=== PATIENT | female | born 1980 | race Caucasian/White ===

== ENCOUNTER 2021-11-26 13:01 | Outpatient (CLI) | payer OTHER, SELFPAY | END 2021-11-26 13:02 | disposition home or self-care (01) | LOC: US 13:02 | PROVIDERS: PCP Family Medicine; Visit Provider Obstetrics & Gynecology | DX: Z30.430 Encounter for insertion of intrauterine contraceptive device (principal) | CPT/HCPCS: 58300; 76856; J7298 ==

== ENCOUNTER 2022-04-26 14:30 | Outpatient (CLI) | payer OTHER, SELFPAY ==
[2022-04-26 10:28] LABS: Albumin* 4.3 g/dL (3.3-5.0); Chloride* 108 mmol/L (96-114)
[2022-04-26 10:29] LABS: Potassium* 4.2 mmol/L (3.6-5.1); Sodium* 141 mmol/L (135-149)
[2022-04-26 10:31] LABS: Alkaline Phosphatase* 62 U/L (40-150); Aspartate Amino Transferase* 31 U/L (12-35); Bilirubin Total* 0.9 mg/dL (0.1-1.5); Blood Urea Nitrogen* 11 mg/dL (5-24); Carbon Dioxide* 25 mmol/L (20-32); Creatinine* 0.9 mg/dL (0.5-1.5); Estimated Glomerular Filt Rate 83 ml/min; Glucose* 88 mg/dL (60-115); Total Protein* 7.1 g/dL (6.0-8.3)
[2022-04-26 10:32] LABS: Alanine Aminotransferase* 28 U/L (4-35); Calcium* 9.2 mg/dL (8.4-10.6); HDL Cholesterol* 42 mg/dL (>=50); Triglycerides* 124 mg/dL (40-149)
[2022-04-27 18:56] LABS: Cholesterol* 176 mg/dL (90-199); LDL Cholesterol Calculated 109 mg/dL (<100)
== END 2022-04-26 14:31 | disposition home or self-care (01) ==
PROVIDERS: PCP Family Medicine; Visit Provider Family Medicine
DX: Z01.419 Encounter for gynecological examination (general) (routine) without abnormal findings (principal); E66.9 Obesity, unspecified; E78.5 Hyperlipidemia, unspecified
CPT/HCPCS: 80053; 80061

== ENCOUNTER 2023-05-08 09:25 | Outpatient (CLI) | payer OTHER, SELFPAY ==
--- OUTSIDE RECORDS SUMMARY | 2023-05-12 07:34 | XMS_ITS | Clinical Summary ---
Author Name Unknown Organization [employer] [facility] Address [place], [place] [address] Care Team Providers Care Inspector Open Die Name Role Phone None Primary Care Provider Unavailabl e Allergies Active Allergy Reactions Criticality Noted Date Comments Penicillins 09/27/2007 Medications Medication Sig Dispensed Refills Start Date End Date Status rivaroxaban (Xarelto) 10 mg tablet Take 1 Tablet (10 mg) by mouth one time if needed. 0 12/05/2021 Active multivitamin (MVI) tablet Take 1 Tablet by mouth once daily. 0 12/05/2021 Active Active Problems No known active problems Social History Tobacco Use Types Packs/Day Years Used Date Smoking Tobacco: Never Smokeless Tobacco: Never Alcohol Use Standard Drinks/Week Comments Yes 0 (1 standard drink = 0.6 oz pur e alcohol) twice per month Sex and Gender Information Value Date Recorded Sex Assigned at Not on file Gender Identity Not on file Sexual Orientation Not on file Obstetrics History Last Filed Vital Signs Vital Sign Reading Time Taken Comments Blood Pressure 175/102 12/05/2021 9:17 AM CDT Pulse 125 12/05/2021 9:17 AM CDT Temperature 37.3 ??C (99.1 ??F) 12/05/2021 9:17 AM CD T Respiratory Rate 16 12/05/2021 9:17 AM CDT Oxygen Saturation 97% 12/05/2021 9:17 AM CDT Inhaled Oxygen Concentration - - Weight 108.9 kg (240 lb) 07/21/2008 7:56 AM CDT Height 170.2 cm (5' 7) 07/21/2008 7:56 AM CDT Body Mass Index 37.59 07/21/2008 7:56 AM CDT Plan of Treatment Health Maintenance Due Date Last Done Comments Tdap 1993 Depression screening for age 12+ 1994 HIV for age 15-65 1997 BMI (ht and wt on same day) for age 18+ 2000 Hepatitis C screening for ag e 18-79 2000 Tetanus booster 2002 COVID-19 vaccine series (2022- season) 2022 03/20/2021, 08/06/2020, 2020 Influenza for age 9-49 12/23/2022 Pap test for age 21-65 11/21/2023 , 11/20/2020 Pneumococcal series for age 6-64 Aged Out No longer eligible b ased on patient's age to complete this topic Care Teams Inspector Open Die Relationship Specialty Start Date End Date None . PCP - General 09/27/07
--- OUTSIDE RECORDS SUMMARY | 2023-05-12 07:34 | XMS_ITS | Encounter Summary ---
Author Name Unknown Organization [facility] Address [address] [place] [address] Care Team Providers Care Division Field Inspector Name Role Phone Elsewhere, Pcp Primary Care Provider Unavailabl e Reason for Visit * Reason Comments Sore Throat Hard to swallow; pt not eating much due to throat swelling. Sx's since Monday Nausea Since AM; wretc krishna no vomiting Earache Aches with swallowin g Encounter Details Date Type Department Care Team (Late st Contact Info) Description 06/08/2022 6:30 PM ROBOTIC WELDING OPERATOR Office Visit Urgent Care, [facility], in [place], [place] [address] [place] [phone] Dg Rock APRN, C.N.P., D.N.P. Pharyngitis Acute (Primary Dx); Tonsillitis Acute Discharge Disposition: Home or Self Care Social History Tobacco Use Types Packs/Day Years Used Date Smoking Tobacco: Never Passive Smoke Exposure: Never Smokeless Tobacco: Never Tobacco Cessation:Counseling Given: Not Answered Nutrition Answer Date Recorded Nutrition: EVOO Fat Source Unknown 06/01 Nutrition: Servings of Fruits/Vegetables per Day Not on file 06/01/2021 Dental Answer Date Recorded Dental: Regular Dentist Unknown 06/01/19 Sex and Gender Information Value Date Recorded Sex Assigned at Not on file Gender Identity Not on file Sexual Orientation Not on file documented as of this encounter Last Filed Vital Signs Vital Sign Reading Time Taken Comments Blood Pressure 136/96 06/08/2022 6:45 PM ROBOTIC WELDING OPERATOR Pulse 117 06/08/2022 6:42 PM ROBOTIC WELDING OPERATOR Temperature 36.9 ??C (98.4 ??F) 06/08/2022 6:42 PM CS T Respiratory Rate 18 06/08/2022 6:42 PM ROBOTIC WELDING OPERATOR Oxygen Saturation 97% 06/08/2022 6:42 PM ROBOTIC WELDING OPERATOR Inhaled Oxygen Concentration - - Weight 122 kg (268 lb 15.4 oz) 06/08/2022 6:42 P M ROBOTIC WELDING OPERATOR Height 171 cm (5' 7.32) 06/08/2022 6:42 PM ROBOTIC WELDING OPERATOR Body Mass Index 41.72 06/08/2022 6:42 PM ROBOTIC WELDING OPERATOR documented in this encounter Patient Instructions * Attachments The following attachments cannot be sent through Care Everywhere. * Sore Throat Care (Puerto Rican) documented in this encounter Progress Notes * Dg Rock, TISHA, C.N.P., D.N.P. - 06/08/2022 6:30 PM CST SUBJECTIVE CHIEF COMPLAINT / REASON FOR VISIT Sore Throat (Hard to swallow; pt not eating much due to throat swelling. Sx's since Monday), Nausea(Since ; wretching no vomiting), and Earache (Aches with swallowing) HISTORY OF PRESENT ILLNESS Analisa Coyne is a 41 y.o. female who presents for evaluation of her sore throat. Patient reports that she initially started with sore throat on Monday night. Monday she had some nausea. She hasnot had any fevers. She reports that her throat presently feels the best tests since morning. Earlier during the day she had trouble swallowing and was spitting her saliva due to pain. She does not have any hoarseness of voice. She has not had any fevers. Home treatments include Advil 400 mg, gargling with saltwater. She also reports having some ear pain when she swallows. REVIEW OF SYSTEMS A brief review of systems was negative except for that mentioned in the history of present of illness. The patient's social history, medical history, and home medications were reviewed in the electronicmedical record. ALLERGIES/CONTRAINDICATIONS Allergies Allergen Reactions Penicillins Hives OBJECTIVE VITAL SIGNS BP (!) 136/96 Pulse (!) 117 Temp 36.9 ??C (Temporal) Resp 18 Ht 171 cm Wt 122 kg SpO2 97% BMI 41.72 kg/m?? PHYSICAL EXAMINATION General: This patient is alert and in no acute distress. HEENT: Head is atraumatic and normocephalic. Sclera and conjunctivae appear clear without any injection or exudates. PERRLA. EOMs are intact bilateral. Auditory canals are normal without erythema or edema. TMs are pearly mitchell and intact without erythema. Oral cavity is adequately hydrated. Posterior pharynx is erythematous. Uvula is midline. Tonsils are enlarged. Neck: Supple with bilateral tonsillar lymphadenopathy. Respiratory: Effort is easy. Lung sounds are clear to auscultation. Cardiovascular: S1, S2 are present. Normal rate and rhythm. Musculoskeletal: Grossly intact. No deformities are noted. Skin: Normal color, temperature and moisture. No rashes or lesions are noted. DIAGNOSTICS Recent Results (from the past 24 hour(s)) Strep Group A, PCR, Point of Care Collection Time: 06/08/22 7:06 PM Result Value Strep Group A, PCR, POCT Collected ASSESSMENT / PLAN #1 Pharyngitis Acute #2 Tonsillitis Acute Other orders - Strep Group A, PCR, Point of Care - predniSONE (DELTASONE) 10 mg tablet; Take 3 tablets (30 mg total) by mouth daily for 3 days., Starting 06/08/2022, Until 06/11/2022, Normal A strep PCR test is pending. Will call to update on test results and treat if positive. Push fluids. Take prednisone 30 mg daily for the next 3 days starting tomorrow morning with food. Get plenty ofrest. OTC and home care measures such as saltwater gargles, lozenges, cough drops, honey were discussed. Tylenol or Ibuprofen as needed for pain or fever, dosages discussed. See primary care providerto follow-up in 4-5 days if not improving, sooner to ED or urgent care for any worsening or concerning symptoms. Patient verbalized understanding and agree with this plan. No further needs at this time. Electronically signed by: Dg Rock APRN, C.N.P., D.N.P. 06/08/22 7:53 PM ROBOTIC WELDING OPERATOR TIC WELDING OPERATOR documented in this encounter Plan of Treatment Not on file documented as of this encounter Procedures Procedure Name Priority Date/Time Associated Diagnosis Comments STREP GROUP A, PCR, POCT Routine 06/08/2022 8:09 PM ROBOTIC WELDING OPERATOR STREP GROUP A, PCR, POCT Routine 06/08/2022 7:06 PM ROBOTIC WELDING OPERATOR Pharyngitis Acute Tonsillitis Acute documented in this encounter Results * (ABNORMAL) Strep Group A, PCR, Point of Care (06/08/2022 8:09 PM ROBOTIC WELDING OPERATOR) Strep Group A, PCR, POCT Positive(A ) Negative 06/08/2022 8:09 PM ROBOTIC WELDING OPERATOR NPRG 06/08/2022 8:09 PM ROBOTIC WELDING OPERATOR 06/08/2022 8:24 PM ROBOTIC WELDING OPERATOR Generic [facility] POCT ORDERABLES - DEVICE Performing Organization Address City/[facility]/ZIP Co de Phone Number [facility] [address] [place] [address], [place] NPRG [address] [address] * Strep Group A, PCR, Point of Care (06/08/2022 7:06 PM ROBOTIC WELDING OPERATOR) Strep Group A, PCR, POCT Collected DEFAULT 06/08/2022 7:09 PM ROBOTIC WELDING OPERATOR NPRG Swab (Throat) 06/08/2022 7:0 6 PM ROBOTIC WELDING OPERATOR 06/08/2022 7:09 PM ROBOTIC WELDING OPERATOR Dg Rock APRN C.N.P., D.N.P. LAB P OCT ORDERABLES - DEVICE Performing Organization Address City/[facility]/ZIP Co de Phone Number [facility] [address] [place] [address], [facility] [address] [address] documented in this encounter Visit Diagnoses Diagnosis Pharyngitis Acute- Primary Tonsillitis Acute documented in this encounter Care Teams Division Field Inspector Relationship Specialty Start Date End Date Elsewhere, Pcp PCP - General Internal Medicine 06/08/22 documented as of this encounter
--- OUTSIDE RECORDS SUMMARY | 2023-05-12 07:34 | XMS_ITS | Encounter Summary ---
Author Name Unknown Organization [facility] Address [address] [place] [address] Care Team Providers Care Vocational Rehabilitation Counselor Name Role Phone Elsewhere, Pcp Primary Care Provider Unavailabl e Encounter Details Date Type Department Care Team (Late st Contact Info) Description 06/09/2022 Clinical Communication Urgent Care, [facility], in [place], [place] [address] [place] [phone] Dg Rock, TISHA, C.N.P., D.N.P. Social History Tobacco Use Types Packs/Day Years Used Date Smoking Tobacco: Never Passive Smoke Exposure: Never Smokeless Tobacco: Never Nutrition Answer Date Recorded Nutrition: EVOO Fat Source Unknown 06/01 Nutrition: Servings of Fruits/Vegetables per Day Not on file 06/01/2021 Dental Answer Date Recorded Dental: Regular Dentist Unknown 06/01/19 Sex and Gender Information Value Date Recorded Sex Assigned at Not on file Gender Identity Not on file Sexual Orientation Not on file documented as of this encounter Plan of Treatment Not on file documented as of this encounter Visit Diagnoses Diagnosis Pharyngitis Streptococcal- Primary documented in this encounter Care Teams Vocational Rehabilitation Counselor Relationship Specialty Start Date End Date Elsewhere, Pcp PCP - General Internal Medicine 06/08/22 documented as of this encounter
--- OUTSIDE RECORDS SUMMARY | 2023-05-12 07:34 | XMS_ITS ---
Author Name Unknown Organization [facility] Address [address] [place] [address] Care Team Providers Care Tele Marketing Executive Name Role Phone Unavailable Unavailable Unavailable Surgery Details Not on file Complications Check Surgery Details section. Procedure Estimated Blood Loss Check Surgery Details section. Procedure Findings Check Surgery Details section. Procedure Specimens Taken Check Surgery Details section.
--- OUTSIDE RECORDS SUMMARY | 2023-05-12 07:34 | XMS_ITS | Referral Summary ---
Author Name Unknown Organization [facility] Address [address] [place] [address] Care Team Providers Care Financial Sales Consultant Name Role Phone Elsewhere, Pcp Primary Care Provider Unavailabl e Source Comments Patient records contain information from all sites at [facility]. For routine questions regarding patient records, call [phone] during business hours, M-F 8:00 AM - 5:00 PM Central Time. Record requests for emergency care only can be directed to [phone] at any time.[facility] Allergies Active Allergy Reactions Criticality Noted Date Comments Penicillins Hives (Reselect Reaction) High 8 Medications Medication Sig Dispensed Refills Start Date End Date Status levonorgestreL (MIRENA) 21 mcg/24 hours (8 yrs) 52 mg IUD 20 mcg by intrauterine route. 0 11/13/2015 Active loratadine-pseudoep hedrine (Loratadine-D) 5-120 mg per 12 hr tablet Take 1 tablet by mouth 2 (two) times a day. 0 Active rivaroxaban (XARELTO) 10 mg tablet Take 10 mg by mouth daily as needed. 0 04/20/2018 Active multivitamin tablet Take 1 tablet by mouth daily. 0 12/05/2021 Active Active Problems No known active problems Social History Tobacco Use Types Packs/Day Years Used Date Smoking Tobacco: Never Passive Smoke Exposure: Never Smokeless Tobacco: Never Tobacco Cessation:Counseling Given: Not Answered Nutrition Answer Date Recorded Nutrition: EVOO Fat Source Unknown 06/01 Nutrition: Servings of Fruits/Vegetables per Day Not on file 06/01/2021 Dental Answer Date Recorded Dental: Regular Dentist Unknown 06/01/19 22 Sex and Gender Information Value Date Recorded Sex Assigned at Not on file Gender Identity Not on file Sexual Orientation Not on file Last Filed Vital Signs Vital Sign Reading Time Taken Comments Blood Pressure 136/96 06/08/2022 6:45 PM BIAS BINDING CUTTER Pulse 117 06/08/2022 6:42 PM BIAS BINDING CUTTER Temperature 36.9 ??C (98.4 ??F) 06/08/2022 6:42 PM CS T Respiratory Rate 18 06/08/2022 6:42 PM BIAS BINDING CUTTER Oxygen Saturation 97% 06/08/2022 6:42 PM BIAS BINDING CUTTER Inhaled Oxygen Concentration - - Weight 122 kg (268 lb 15.4 oz) 06/08/2022 6:42 P M BIAS BINDING CUTTER Height 171 cm (5' 7.32) 06/08/2022 6:42 PM BIAS BINDING CUTTER Body Mass Index 41.72 06/08/2022 6:42 PM BIAS BINDING CUTTER Plan of Treatment Not on file Care Teams Financial Sales Consultant Relationship Specialty Start Date End Date Elsewhere, Pcp PCP - General Internal Medicine 06/08/22
--- OUTSIDE RECORDS SUMMARY | 2023-05-12 07:34 | XMS_ITS | Clinical Summary ---
Author Name Unknown Organization [facility] Address [address] [place] [address] Care Team Providers Care Mill Helper Name Role Phone Elsewhere, Pcp Primary Care Provider Unavailabl e Source Comments Patient records contain information from all sites at [facility]. For routine questions regarding patient records, call [phone] during business hours, M-F 8:00 AM - 5:00 PM Central Time. Record requests for emergency care only can be directed to [phone] at any time.[facility] Allergies Active Allergy Reactions Criticality Noted Date [...] Answer Date Recorded Dental: Regular Dentist Unknown 02/08/20 22 Sex and Gender Information Value Date Recorded Sex Assigned at Not on file Gender Identity Not on file Sexual Orientation Not on file Last Filed Vital Signs Vital Sign Reading Time Taken Comments Blood Pressure 136/96 06/08/2022 6:45 PM STONE POLISHER Pulse 117 06/08/2022 6:42 PM STONE POLISHER Temperature 36.9 ??C (98.4 ??F) 06/08/2022 6:42 PM CS T Respiratory Rate 18 06/08/2022 6:42 PM STONE POLISHER Oxygen Saturation 97% 06/08/2022 6:42 PM STONE POLISHER Inhaled Oxygen Concentration - - Weight 122 kg (268 lb 15.4 oz) 06/08/2022 6:42 P M STONE POLISHER Height 171 cm (5' 7.32) 06/08/2022 6:42 PM STONE POLISHER Body Mass Index 41.72 06/08/2022 6:42 PM STONE POLISHER Plan of Treatment Health Maintenance Due Date Last Done Comments Cervical Cancer Screening 1982 HIV Screening 1982 Hepatitis C Screening 1982 Lipid (Cholesterol) Screening 1982 Mammogram 1982 Depression Screening (Annual PHQ-2) 04/24/2022 COVID-19 Vaccine ( season) 2022 03/20/2021, 08/06/2020, 2020 Influenza Vaccine (#1) 2023 4, 01/30/2014, 03/10/2013, Additional history exists DTaP,Tdap,and Td Vaccines (8 - Td or Tdap) 11/20/2030 11/20/2020, 09/26/2008, 08/06/1987, Additional history exists Hepatitis B Vaccines Completed 05/08/1998, 12/11/1997, 11/06/1997 HPV Vaccines Completed 07/02/2008, 12/23, 10/08/2007 Pneumococcal vaccine (0-64 years) Aged Out No longer eligible based on patient's age to complete this topic Care Teams Mill Helper Relationship Specialty Start Date End Date Elsewhere, Pcp PCP - General Internal Medicine 06/08/22
== END 2023-05-08 09:26 | disposition home or self-care (01) ==
LOC: NFLDREF 05-12 07:33
PROVIDERS: PCP Family Medicine; Referring Provider Family Medicine; Visit Provider Family Medicine
DX: Z00.00 Encounter for general adult medical examination without abnormal findings (principal); E78.5 Hyperlipidemia, unspecified; I10 Essential (primary) hypertension; E66.01 Morbid (severe) obesity due to excess calories; Z13.29 Encounter for screening for other suspected endocrine disorder
CPT/HCPCS: 80053; 80061; 84443

== ENCOUNTER 2023-07-28 11:09 | Outpatient (CLI) | payer OTHER, SELFPAY ==
--- NOTE | 2023-07-28 11:30 | MM_ITS ---
Patient: SRIKANTH LARA Facility:?[facility] Patient ID:?[id number] Site Patient ID:?[id number]. Site :?1980 Study:?XRay-Breast Bilateral 3D w/CAD-07/28/2023 11:36:44 AM Ordering Physician:Nidia Final Report: BILATERAL SCREENING MAMMOGRAM WITH COMPUTER-AIDED DETECTION AND TOMOSYNTHESIS TECHNIQUE: CC and MLO views were obtained. These mammographic images have been obtained using full-field digital technique. These mammographic images were interpreted with the benefit of computer-aided detection. Breast Tomosynthesis was used in this interpretation. COMPARISON FILM: Baseline. FINDINGS: There are scattered areas of fibroglandular density. IMPRESSION: There is no radiographic evidence for malignancy. ASSESSMENT: BI-RADS Category 1: Negative RECOMMENDATION: Routine screening mammogram in 1 year. A lay language report of this examination will be provided to the patient. Nikolai Nichols M.D. Diagnostic Radiologist [email or web address] [email or web address]/sp R& Transcribed: 12:11 p.mBlessing SP/Dictated by: Nikolai Nichols MD @ 07/31/2023 9:55:00 AM Signed by:?Nikolai Nichols MD @07/31/2023 12:24:16 PM (Electronic Signature)
== END 2023-07-28 11:10 | disposition home or self-care (01) ==
LOC: MAMMO 11:10
PROVIDERS: PCP Family Medicine; Visit Provider Family Medicine
DX: Z12.31 Encounter for screening mammogram for malignant neoplasm of breast (principal)
CPT/HCPCS: 77063; 77067

== ENCOUNTER 2023-09-29 09:02 | Outpatient (CLI) | payer OTHER, SELFPAY ==
--- OUTSIDE RECORDS SUMMARY | 2023-10-16 22:18 | XMS_ITS | Clinical Summary ---
Author Organization [facility] Address [address] [place] [address] Care Team Providers Care Appliance Assembler Name Role Phone Elsewhere, Pcp Primary Care Provider Unavailabl e Source Comments Patient records contain information from all sites at [facility]. For routine questions regarding patient records, call [phone] during business hours, M-F 8:00 AM - 5:00 PM Central Time. Record requests for emergency care only can be directed to [phone] at any time.[facility] Allergies Active Allergy Reactions Criticality Noted Date Comments Penicillins Hives (Reselect Reaction) High 8 Medications Medication Sig Dispensed Refills Start Date End Date Status levonorgestreL (MIRENA) 21 mcg/24 hours (8 yrs) 52 mg IUD 20 mcg by intrauterine route. 11/13/2015 Active loratadine-pseudoep hedrine (Loratadine-D) 5-120 mg per 12 hr tablet Take 1 tablet by mouth 2 (two) times a day. Active rivaroxaban (XARELTO) 10 mg tablet Take 10 mg by mouth daily as needed. 04/20/2018 Active multivitamin tablet Take 1 tablet by mouth daily. 12/05/2021 Active azithromycin (ZITHROMAX) 500 mg tablet Take 1 tablet (500 mg total) by mouth daily. 5 tablet 07/25/2023 Active Active Problems No known active problems Encounters Date Type Department Care Team Description 07/25/2023 11:45 AM CDT Office Visit Urgent Care, [facility], in [place], [place] [address] [place] [phone] Rosi Paige APRN, C.N.P. Sinusitis Acute (Primary Dx) Discharge Disposition: Home or Self Care from Last 3 Months Social History Tobacco Use Types Packs/Day Years [...] Sign Reading Time Taken Comments Blood Pressure 142/106 07/25/2023 11:56 AM CDT Pulse 63 07/25/2023 11:50 AM CDT Temperature 36.7 ??C (98.1 ??F) 07/25/2023 11:50 AM C DT Respiratory Rate 18 06/08/2022 6:42 PM DEMAND PLANNER Oxygen Saturation 97% 07/25/2023 11:50 AM CDT Inhaled Oxygen Concentration - - Weight 126 kg (277 lb 5.4 oz) 07/25/2023 11:50 A M CDT Height 171 cm (5' 7.32) 06/08/2022 6:42 PM DEMAND PLANNER Body Mass Index 43.02 06/08/2022 6:42 PM DEMAND PLANNER Plan of Treatment Health Maintenance Due Date Last Done Comments HIV Screening 1982 Hepatitis C Screening 1982 Lipid (Cholesterol) Screening 1982 Mammogram 1982 COVID-19 Vaccine ( season) 2022 03/20/2021, 08/06/2020, 2020 Influenza Vaccine (#1) 2023 4, 01/30/2014, 03/10/2013, Additional history exists Depression Screening (Annual PHQ-2) 04/24/2023 Cervical Cancer Screening 11/21/2023 11/20/2020 DTaP,Tdap,and Td Vaccines (8 - Td or Tdap) 11/20/2030 11/20/2020, 09/26/2008, 08/06/1987, Additional history exists Hepatitis B Vaccines Completed 05/08/1998, 12/11/1997, 11/06/1997 HPV Vaccines Completed 07/02/2008, 12/23, 10/08/2007 Pneumococcal vaccine (0-64 years) Aged Out No longer eligible based on patient's age to complete this topic Procedures Procedure Name Priority Date/Time Associated Diagnosis Comments GROUP A STREP PCR, THROAT STAT 07/25/2023 12:05 PM CDT Sinusitis Acute from Last 3 Months Results * Group A Streptococcus PCR, Throat (07/25/2023 12:05 PM CDT) Strep Group A, PCR, POCT Negative Negative 07/25/2023 12:05 PM CDT NPRG Swab (Throat) 07/25/2023 12: 05 PM CDT 07/25/2023 12:05 PM CDT Rosi Paige APRN C.N.P. LAB MICROB IOLOGY - GENERAL ORDERABLES [facility] [address] [place] [address], [place] NPRG [facility] [address] [place] [address] from Last 3 Months Care Teams Appliance Assembler Relationship Specialty Start Date End Date Elsewhere, Pcp PCP - General Internal Medicine 06/08/22
--- OUTSIDE RECORDS SUMMARY | 2023-10-16 22:19 | XMS_ITS | Referral Summary ---
Author Organization [facility] Address [address] [place] [address] Care Team Providers Care Case Worker Name Role Phone Elsewhere, Pcp Primary Care Provider Unavailabl e Source Comments Patient records contain information from all sites at [facility]. For routine questions regarding patient records, call [phone] during business hours, M-F 8:00 AM - 5:00 PM Central Time. Record requests for emergency care only can be directed to [phone] at any time.[facility] Encounters Date Type Department Care Team Description 07/25/2023 11:45 AM CDT Office Visit Urgent Care, [facility], in [place], [place] [address] [place] [phone] Rosi Paige, TISHA, C.N.P. Sinusitis Acute (Primary Dx) Discharge Disposition: Home or Self Care from Last 3 Months Allergies Active Allergy Reactions Criticality Noted Date [...] DT Respiratory Rate 18 06/08/2022 6:42 PM DOOR OPENER Oxygen Saturation 97% 07/25/2023 11:50 AM CDT Inhaled Oxygen Concentration - - Weight 126 kg (277 lb 5.4 oz) 07/25/2023 11:50 A M CDT Height 171 cm (5' 7.32) 06/08/2022 6:42 PM DOOR OPENER Body Mass Index 43.02 06/08/2022 6:42 PM DOOR OPENER Plan of Treatment Not on file Procedures Procedure Name Priority Date/Time Associated Diagnosis Comments GROUP A STREP PCR, THROAT STAT 07/25/2023 12:05 PM CDT Sinusitis Acute from Last 3 Months Results * Group A Streptococcus PCR, Throat (07/25/2023 12:05 PM CDT) Strep Group A, PCR, POCT Negative Negative 07/25/2023 12:05 PM CDT NPRG Swab (Throat) 07/25/2023 12: 05 PM CDT 07/25/2023 12:05 PM CDT Rosi Paige APRN, C.N.P. LAB MICROB IOLOGY - GENERAL ORDERABLES [facility] [address] [place] [address], [place] NPRG [facility] [address] [place] [address] from Last 3 Months Care Teams Case Worker Relationship Specialty Start Date End Date Elsewhere, Pcp PCP - General Internal Medicine 06/08/22
--- OUTSIDE RECORDS SUMMARY | 2023-10-16 22:19 | XMS_ITS ---
Author Organization [facility] Address [address] [place] [address] Care Team Providers Care Blower Blast Furnace Name Role Phone Unavailable Unavailable Unavailable Surgery Details Not on file Complications Check Surgery Details section. Procedure Estimated Blood Loss Check Surgery Details section. Procedure Findings Check Surgery Details section. Procedure Specimens Taken Check Surgery Details section.
--- OUTSIDE RECORDS SUMMARY | 2023-10-16 22:19 | XMS_ITS | Encounter Summary ---
Author Organization [facility] Address [address] [place] [address] Care Team Providers Care Respiratory Technician Name Role Phone Elsewhere, Pcp Primary Care Provider Unavailabl e Reason for Visit * Reason Comments Sore Throat Cough Headache Sinus congestion x 1 week Encounter Details Date Type Department Care Team (Late st Contact Info) Description 07/25/2023 11:45 AM CDT Office Visit Urgent Care, [facility], in [place], [place] [address] [place] [address] Rosi Paige, FISHER NET, C.N.P. 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 - 07/25/2023 11:45 AM CDT CHIEF COMPLAINT / REASON FOR VISIT / HPI Chief Complaint Patient presents with Sore Throat Cough Headache Sinus congestion x 1 week Sick for the past week with the above symptoms. Productive cough with clear to yellow phlegm Denies: SOB, CP, Fever She felt like her symptoms had been improving over the last 2 days but in the last 12-24 hours her symptoms have gotten significantly worse. She had a similar illness 1 year ago that was treated with Zithromax. The patient's social and medical history were reviewed in the electronic medical record. ALLERGIES/CONTRAINDICATIONS Allergies Allergen Reactions Penicillins Hives (Reselect Reaction) OBJECTIVE VITAL SIGNS BP (!) 142/106 (BP Location: Right arm, Patient Position: Sitting, Cuff Size: Large) Pulse 63 Temp 36.7 ??C (Temporal) Wt 126 kg SpO2 97% BMI 43.02 kg/m?? PHYSICAL EXAMINATION General: Alert and in no acute distress. HEENT: Oral cavity adequately hydrated. TMs are intact bilaterally without erythema or effusion. Posterior pharynx is mildly erythematous with drainage present. Neck: Supple without lymphadenopathy. Respiratory: Effort easy. Musculoskeletal: Grossly intact. No deformities noted. Skin: Normal color, temperature and moisture. No rashes or lesions noted. DIAGNOSTICS Labs: Recent Results (from the past 24 hour(s)) Group A Streptococcus PCR, Throat Collection Time: 07/25/23 12:05 PM Specimen: Throat; Swab Result Value Strep Group A, PCR, POCT Negative ASSESSMENT / PLAN #1 Sinusitis Acute - Group A Streptococcus PCR, Throat Other orders - azithromycin (ZITHROMAX) 500 mg tablet; Take 1 tablet (500 mg total) by mouth daily., Starting Mon07/25/2023, Normal Medication side effects were discussed. General recommendations: Drink ample fluids. Get plenty of rest. Wash your hands frequently. For pain or fever: Take ibuprofen or acetaminophen according to package instructions. (If you have ever been advised to avoid either of these medications, please contact your primary care provider for approval prior to using.) May use Cepacol or other throat lozenges for sore throat as needed. Concerning symptoms to watch for were discussed. If new or concerning symptoms develop, seek medical attention. Patient verbalizes understanding and acceptance of this plan of care and denies any further needs or questions at this time. Rosi Paige APRN, C.N.P. documented in this encounter Plan of Treatment Not on file documented as of this encounter Procedures Procedure Name Priority Date/Time Associated Diagnosis Comments GROUP A STREP PCR, THROAT STAT 07/25/2023 12:05 PM CDT Sinusitis Acute documented in this encounter Results * Group A Streptococcus PCR, Throat (07/25/2023 12:05 PM CDT) Strep Group A, PCR, POCT Negative Negative 07/25/2023 12:05 PM CDT NPRG Swab (Throat) 07/25/2023 12: 05 PM CDT 07/25/2023 12:05 PM CDT Rosi Paige APRN, C.N.P. LAB MICROB IOLOGY - GENERAL ORDERABLES [facility] [address] [place] [address], [facility] NPRG [facility] [address] [place] [address] documented in this encounter Visit Diagnoses Diagnosis Sinusitis Acute- Primary documented in this encounter Care Teams Respiratory Technician Relationship Specialty Start Date End Date Elsewhere, Pcp PCP - General Internal Medicine 06/08/22 documented as of this encounter
--- OUTSIDE RECORDS SUMMARY | 2023-10-16 22:19 | XMS_ITS | Clinical Summary ---
Author Organization [facility] Address [place], [place] [address] Care Team Providers Care Client Advocate Name Role Phone None Primary Care Provider [...] 2000 Tetanus booster 2002 COVID-19 vaccine series (2022-24 season) 2022 03/20/2021, 08/06/2020, 2020 Pap test for age 21-65 11/21/2023 , 11/20/2020 Influenza for age 9-49 12/24/2023 Pneumococcal series for age 6-64 Aged Out No longer eligible b ased on patient's age to complete this topic Procedures Procedure Name Priority Date/Time Associated Diagnosis Comments PET NUTRITION SPECIALIST THIN PREP PAP SCREEN IMAGED Routine 11/20/2020 12:00 PM CDT from Last 3 Months or Most Recently Relevant to Health Maintenance Results * PET NUTRITION SPECIALIST THIN PREP PAP SCREEN IMAGED (11/20/2020 12:00 PM CDT) Case Report Gynecologic Cytology Report ? Case: [id number] ? Authorizing Provider: ??Unknown, Doctor ?Collected: ? 11/20/2020 1200 ? Ordering Location: ? [facility] ?Received: ?11/24/2020 0741 ? First Screen: ?Baccam, Minie ? Specimen: ?PET NUTRITION SPECIALIST ThinPrep Vial Screening, Cervical/Vaginal ? 12/02/2020 11:15 AM CDT [facility] INTERPRETATION/ RESULT NEGATIVE FOR INTRAEPITHELIAL LESION OR MALIGNANCY (NIL) (none) 12/02/2020 11:15 AM [facility] IMEN ADEQUACY Satisfactory for evaluation Endocervical component present 12/02/2020 11:15 AM [facility] HPV REQUEST HPV and PAP 12/02/2020 11:15 AM [facility] Date of LMP 11/12/2020 12/02/2020 11:15 AM [facility] Last Pap Date 12/02/2020 11:15 AM [facility] Comment:2016 Last Pap Result 11:15 AM [facility] Comment:Unknown Additional Information 12/02/2020 11:15 AM [facility] Comment: Interpreted at [facility] Laboratory - [address], [place] [address] Automated Review Successful 12/02/2020 11:15 AM [facility] Comment:Specimen processed s uccessfully by automated circuit manager device, ThinPrep Imaging System, [employer] ANCILLARY TESTING PET NUTRITION SPECIALIST HPV Ordered, Please see separate report 12/02/2020 11:15 AM [facility] Note The pap test is a screening technique, not a diagnostic procedure. It is used primarily to screen for squamous cancers and precursor lesions. Published studies have shown that it is subject to both false negative and false positive results. The pap test should not be used as the sole means to diagnose or exclude pre-malignant and malignant lesions. 12/02/2020 11:15 AM [facility] Other (Cervical/Vagina l) 11/20/2020 12:00 PM CDT 11/24/2020 7:41 AM CDT Doctor Unknown PATHOLOGY/CYTOLOGY [facility] [address] [place] [address], from Last 3 Months or Most Recently Relevant to Health Maintenance Care Teams Client Advocate Relationship Specialty Start Date End Date None . PCP - General 09/27/07
== END 2023-09-29 09:03 | disposition home or self-care (01) ==
LOC: NFLDREF 10-16 22:17
PROVIDERS: PCP Family Medicine; Referring Provider Family Medicine; Visit Provider Family Medicine
DX: I10 Essential (primary) hypertension (principal)
CPT/HCPCS: 80048